=== PATIENT | male | born 1950 | race African-American/Black ===

== ENCOUNTER 2018-01-16 16:27 | Emergency (ER) | payer MEDICARE, OTHER ==
[2018-01-16] MEDS ORDERED: Dexamethasone 4 mg/ml Vial ONE (17:11)
== END 2018-01-16 17:32 | disposition home or self-care (01) ==
LOC: NAV ERS 16:27
DX: I73.9 Peripheral vascular disease, unspecified (principal); F20.9 Schizophrenia, unspecified
CPT/HCPCS: 96372; J1100

== ENCOUNTER 2019-08-04 01:33 | Emergency (ER) | payer MEDICARE, OTHER ==
[2019-08-04] MEDS ORDERED: methylPREDNISolone Sod Succ/PF 125 MG/2 ML VIAL ONE (02:03)
== END 2019-08-04 02:15 | disposition home or self-care (01) ==
LOC: NAV ERS 01:33
DX: M54.16 Radiculopathy, lumbar region (principal); I50.9 Heart failure, unspecified; F20.9 Schizophrenia, unspecified; Z79.899 Other long term (current) drug therapy
CPT/HCPCS: 96372; 99283; J2930

== ENCOUNTER 2019-08-08 01:29 | Emergency (ER) | payer MEDICARE, OTHER ==
[2019-08-08] MEDS ORDERED: methylPREDNISolone Sod Succ/PF 125 MG/2 ML VIAL ONE (02:01)
== END 2019-08-08 02:30 | disposition home or self-care (01) ==
LOC: NAV ERS 01:29
DX: M54.42 Lumbago with sciatica, left side (principal); I50.9 Heart failure, unspecified; F20.9 Schizophrenia, unspecified; Z79.899 Other long term (current) drug therapy
CPT/HCPCS: 96372; 99283; J2930

== ENCOUNTER 2019-09-04 17:46 | Emergency (ER) | payer MEDICARE, OTHER ==
[2019-09-04] MEDS ORDERED: methylPREDNISolone Sod Succ/PF 125 MG/2 ML VIAL ONE (18:14)
== END 2019-09-04 18:34 | disposition home or self-care (01) ==
LOC: NAV ERS 17:46
DX: M54.42 Lumbago with sciatica, left side (principal); M54.16 Radiculopathy, lumbar region; I50.9 Heart failure, unspecified; F20.9 Schizophrenia, unspecified
CPT/HCPCS: 96372; 99283; J2930

== ENCOUNTER 2019-09-18 07:15 | Emergency (ER) | payer MEDICARE, OTHER ==
[2019-09-18] MEDS ORDERED: Acetaminophen 500 MG TAB ONE (07:28)
== END 2019-09-18 08:06 | disposition home or self-care (01) ==
LOC: NAV ERS 07:15
DX: J11.1 Influenza due to unidentified influenza virus with other respiratory manifestations (principal); I50.9 Heart failure, unspecified; F20.9 Schizophrenia, unspecified
CPT/HCPCS: 87804; 99283